=== PATIENT | male | born 1975 | race Caucasian/White ===

== ENCOUNTER 2017-04-16 08:31 | Emergency (ER) | payer MEDICAID, OTHER ==
[~2017-04-16] VITALS: Ht 185.4 cm; Wt 99.8 kg
[2017-04-16 09:20] LABS: Basophils # (auto) 0.1 uL; Basophils % (auto) 0.9 % (0.0-2.0); Eosinophils # (auto) 0.2 uL; Hematocrit 47.8 % (41.0-53.0); Hemoglobin 16.4 g/dL (13.5-17.5); Lymphocytes # (auto) 1.7 uL; Lymphocytes % (auto) 16.5 % (10.0-50.0); Mean Corpuscular Hemoglobin 30.5 pg (28.0-32.0); Mean Corpuscular Hgb Conc. 34.2 g/dL (32.0-36.0); Mean Corpuscular Volume 89.3 fL (80.0-100.0); Mean Platelet Volume 7.7 fL (6.9-10.8); Monocytes # (auto) 0.7 uL; Monocytes % (auto) 6.9 % (0.0-12.0); Neutrophils # (auto) 7.6 uL; Neutrophils % (auto) 73.7 % (37.0-80.0); Nucleated Red Blood Cells % 0.1 %; Platelet Count (auto) 189 10^3/uL (140-450); Red Cell Distribution Width 13.7 % (11.8-14.3); White Blood Cell 10.3 10^3/uL (4.4-10.8)
[2017-04-16 09:43] LABS: Albumin 3.9 g/dL (3.4-5.0); BUN/Creatinine Ratio 13.6; Bilirubin, Total 0.4 mg/dL (0.2-1.0); Potassium 4.5 mmol/L (3.5-5.1); Total Protein 7.8 g/dL (6.4-8.2)
[2017-04-16 10:07] LABS: Urine Bilirubin Negative (Negative); Urine Blood Negative /uL (Negative); Urine Color Yellow (Yellow); Urine Glucose Normal (Normal); Urine Ketone Negative (Negative); Urine Nitrite Negative (Negative); Urine RBC <1 /hpf (0 - 3); Urine Urobilinogen Normal (Negative)
[2017-04-16] MEDS ORDERED: AMIO200T33 PO (11:29)
[2017-04-16] MEDS ORDERED: CLOP75TA41 PO (11:29)
[2017-04-16] MEDS ORDERED: ALL100T PO (11:29)
[2017-04-16] MEDS ORDERED: RANO500T2 PO (11:29)
[2017-04-16] MEDS ORDERED: FENO145T20 PO (11:29)
[2017-04-16] MEDS ORDERED: SIMV-8 PO (11:29)
[2017-04-16] MEDS ORDERED: ASPI81CH43 PO (11:29)
[2017-04-16] MEDS ORDERED: POTA10SO11 PO (11:29)
[2017-04-16] MEDS ORDERED: RASA1TAB4 PO (11:29)
[2017-04-16] MEDS ORDERED: FURO40TA PO (11:29)
[2017-04-16] MEDS ORDERED: VALS320T15 PO (11:29)
[2017-04-16] MEDS ORDERED: PROP60CA8 PO (11:29)
[2017-04-16] MEDS ORDERED: DIGO1TAB35 PO (11:29)
[2017-04-16 11:40] VITALS: BP 154/84
== END 2017-04-16 12:19 | disposition home or self-care (01) ==
LOC: ER 08:31
DX: K64.8 Other hemorrhoids (principal); F17.210 Nicotine dependence, cigarettes, uncomplicated; Z79.899 Other long term (current) drug therapy
CPT/HCPCS: 36415; 74176; 80053; 81001; 85025